=== PATIENT | male | born 1965 | race Caucasian/White ===

== ENCOUNTER 2018-05-11 10:14 | Emergency (ER) | payer BC ==
[2018-05-11 10:31] VITALS: BP 135/92
--- NOTE | 2018-05-11 10:49 | UC ---
Abdominal Pain Male HPI - HPI Summary HPI Summary: RLQ abdominal pain x 2 days getting worse today , pain is 6 out of 10 , no radiation of pain worse with movement better with not moving / rest no fever, no chills, no n/v/d/c , no urinary sx - History of Current Complaint Chief Complaint: UCAbdominalPain Stated Complaint: RT SIDE LOWER ABD PAIN Time Seen by Provider: 05/11/18 10:37 Hx Obtained From: Patient Onset/Duration: Gradual Onset, Lasting Days - 2, Still Present, Worse Since - this morning Timing: Constant Severity Initially: Moderate Severity Currently: Severe Pain Intensity: 6 Location: Discrete At: RLQ Radiates: No Character: Sharp Aggravating Factor(s): Movement Alleviating Factor(s): Rest Associated Signs And Symptoms: Negative: Diaphoresis, Fever, Cough, Chest Pain, Dizzy, Back Pain, Constipation, Blood in Stool, Urinary Symptoms, Decreased Appetite, Nausea, Vomiting, Diarrhea, Penile Discharge - Allergies/Home Medications Allergies/Adverse Reactions: Allergies Allergy/AdvReac Type Severity Reaction Status Date / Time No Known Allergies Allergy Verified 05/11/18 10:31 Home Medications: Home Medications Dapagliflozin 10 mg Tab (Nf) [Farxiga] 10 mg PO 05/11/18 [History] Insulin Glargine,Hum.rec.anlog [Lantus Solostar 5x3 ML PENS] 10 units SUBCUT DAILY 05/11/18 [History Confirmed 05/11/18] Krill/Om-3/Dha/Epa/Phospho/Ast [Megared [place]-3 Krill Oil 500 mg] 1 cap PO 05/11 [History] Lisinopril/HCTZ 20/12.5(NF) [Zestoretic 20/12.5(NF)] 1 tab PO DAILY 05/11/18 [ History Confirmed 05/11/18] Sitagliptin Phosphate [Januvia] 100 mg PO 05/11/18 [History] Spironolactone 25 mg PO DAILY 05/11/18 [History Confirmed 05/11/18] amLODIPine TAB* [Norvasc 5 mg TAB*] 10 mg PO DAILY 05/11/18 [History Confirmed 05/11/18] metFORMIN* [Glucophage 1000 MG TAB *] 1,000 mg PO 0800,1700 05/11/18 [History Confirmed 05/11/18] PMH/Surg Hx/FS Hx/Imm Hx Endocrine History: Diabetes Cardiovascular History: Cardiac Disease, Hypertension, Myocardial Infarction - Surgical History Surgical History: Yes Surgery Procedure, Year, and Place: LEFT KNEE SURGERY - Family History Known Family History: Positive: Hypertension - Social History Alcohol Use: Weekly Substance Use Type: None Smoking Status (MU): Never Smoked Tobacco Review of Systems All Other Systems Reviewed And Are Negative: Yes Constitutional: Positive: Negative Skin: Positive: Negative Eyes: Positive: Negative ENT: Positive: Negative Cardiovascular: Positive: Negative Gastrointestinal: Positive: Abdominal Pain Genitourinary: Positive: Negative Is Patient Immunocompromised?: No Physical Exam Triage Information Reviewed: Yes Appearance: Well-Nourished, Pain Distress Vital Signs: Initial Vital Signs Temp 98.8 F 05/11/18 10:27 Pulse 94 05/11/18 10:27 Resp 18 05/11/18 10:27 BP 135/92 05/11/18 10:27 Pulse Ox 97 05/11/18 10:27 Vital Signs Reviewed: Yes Eye Exam: Normal Eyes: Positive: Conjunctiva Clear ENT: Positive: Normal ENT inspection, Hearing grossly normal, Pharynx normal Neck: Positive: Supple, Nontender, No Lymphadenopathy Respiratory: Positive: Chest non-tender, Lungs clear, Normal breath sounds Cardiovascular: Positive: RRR, No Murmur, Pulses Normal Abdomen Description: Positive: Soft, Other: - RLQ TENDERNESS , + GUARDING. Negative: CVA Tenderness (R), CVA Tenderness (L), Distended, Guarding Bowel Sounds: Positive: Present Skin Exam: Normal Abd Pain Male Course/Dx - Differential Dx/Clinical Impression Provider Diagnoses: RLQ ABDOMINAL PAIN Discharge - Sign-Out/Discharge Documenting (check all that apply): Patient Departure All imaging exams completed and their final reports reviewed: No Studies - Discharge Plan Condition: Good Disposition: HOME Patient Education Materials: Acute Abdominal Pain (ED) Referrals: Elizabeth ALMAZAN,David Yanez [Primary Care Provider] - Additional Instructions: RLQ abdominal pain + guarding concern about acute appendicitis please go to [facility] ED for evaluation and tx - Billing Disposition and Condition Condition: GOOD Disposition: Home
== END 2018-05-11 10:44 | disposition home or self-care (01) ==
LOC: UCCORT 10:14
DX: R10.31 Right lower quadrant pain (principal); E11.9 Type 2 diabetes mellitus without complications; I10 Essential (primary) hypertension; I25.2 Old myocardial infarction; Z79.899 Other long term (current) drug therapy; Z79.4 Long term (current) use of insulin
CPT/HCPCS: 99212; G0463